=== PATIENT | female | born 1970 | race Caucasian/White ===

== ENCOUNTER 2016-08-25 12:23 | Emergency (ER) | payer BC ==
[~2016-08-25] VITALS: Ht 172.7 cm; Wt 72.6 kg
[2016-08-25] MEDS ORDERED: LEVOTHYROXINE25 MCG ORAL (12:58)
--- NOTE | 2016-08-25 13:52 | Emergency Room Report ---
History of Present Illness General Chief Complaint: General Complaint Source: Patient Present Illness HPI 46 YO female though she saw bruise on abdomen, no trauma, no blood thinning medications, not an alcoholic. no abdominal pain, N/V/D/F/C , denies hx of alcoholism, or liver disease.Denies CP, Palpitations, LOC, AMS, dizziness, Changes in Vision, Sensation, paresthesias, or a sudden severe headache. Allergies: Coded Allergies: No Known Allergies (Unverified , 08/25/16) Patient History Past Medical History: see triage record Past Surgical History: none Pertinent Family History: none Last Menstrual Period: 07/2016 Now: No : 6 Para: 3 Immunizations: UTD Reviewed Nursing Documentation: PMH: Agreed, PSxH: Agreed Review of Systems All Other Systems: negative except mentioned in HPI Physical Exam Vital Signs Date Time Temp Pulse Resp B/P Pulse Ox O2 Delivery O2 Flow Rate FiO2 08/25/16 12:52 99.3 89 16 102/66 100 Room Air Sp02 EP Interpretation: reviewed, normal General Appearance: no apparent distress, alert, GCS 15, non-toxic Head: normocephalic, atraumatic Eyes: bilateral eye PERRL, bilateral eye normal inspection ENT: hearing grossly normal, normal pharynx, no angioedema, normal voice Neck: full range of motion, supple/symm/no masses Respiratory: chest non-tender, lungs clear, normal breath sounds, speaking full sentences Cardiovascular #1: regular rate, rhythm, no edema Gastrointestinal: normal bowel sounds, non tender, soft, no guarding, no rebound, other - no evidence of bruising or discoloration, no pain. Rectal: deferred Musculoskeletal: back normal, gait/station normal, normal range of motion, non- tender, no calf tenderness Neurologic: alert, oriented x3, responsive, motor strength/tone normal, sensory intact, speech normal Psychiatric: judgement/insight normal, memory normal, mood/affect normal, no suicidal/homicidal ideation Skin: normal color, no rash, warm/dry, well hydrated, other - no bruises, no jaundice, no lesions. Lymphatic: no adenopathy Medical Decision Making PA Attestation Dr. Stevens is my supervising Physician whom patient management has been discussed with. Diagnostic Impression: Primary Impression: Encounter for medical screening examination ER Course 46 YO female though she saw bruise on abdomen, no trauma, no blood thinning medications, not an alcoholic. no abdominal pain, N/V/D/F/C , denies hx of alcoholism, or liver disease. Ddx considered but are not limited to blunt trauma injury, blood dyscrasia, cellulitis, dermatitis Vital signs: are WNL, pt. is afebrile H&PE are most consistent with normal abdominal examination. d/w pt and it was determined that perhaps what she saw may have been a shadow. pt. states she feels completely fine otherwise she though it was strange she thought she saw a large bruise and had no hx of trauma so she was worried. re- assurance was given. ORDERS: none required at this time, the diagnosis is clinical ED INTERVENTIONS: None required at this time. DISCHARGE: At this time pt. is stable for d/c to home. Will provide printed patient care instructions, and any necessary prescriptions. Care plan and follow up instructions have been discussed with the patient prior to discharge. Last Vital Signs Date Time Temp Pulse Resp B/P Pulse Ox O2 Delivery O2 Flow Rate FiO2 08/25/16 12:52 99.3 89 16 102/66 100 Room Air Disposition: HOME, SELF-CARE Condition: Stable Patient Instructions: Medical Screening Exam Additional Instructions: Take any previously prescribed medications as directed. Follow up with PCP in 3-5 days Return sooner to ED if new symptoms occur, or current symptoms become worse. Magalie Pierson Aug 25, 2016 13:52
[2016-08-25 14:05] VITALS: BP 112/73
== END 2016-08-25 14:05 | disposition home or self-care (01) ==
LOC: EMR 13:48
DX: Z13.89 Encounter for screening for other disorder (principal)
CPT/HCPCS: 99281